=== PATIENT | female | born 1955 | race Caucasian/White ===

== ENCOUNTER 2024-01-14 09:57 | Outpatient (CLI) | payer MEDICARE, OTHER, SELFPAY ==
--- NOTE | ~2024-01-14 | XR_ITS ---
XR hip RT min 2V DATE: 01/14/2024 10:33 INDICATION: Right hip pain TECHNIQUE: AP and lateral views COMPARISON: None FINDINGS: There is severe narrowing and virtual obliteration of right hip joint space and prominent d egenerative spurring of the acetabulum and particularly prominent femoral head spurring, consistent w ith very severe primary osteoarthritis of the right hip. No fracture, dislocation, avascular necrosis or bone destruction is noted. Normal alignment of the pubic symphysis and sacroiliac joints. IMPRESSION: Very severe primary osteoarthritis of right hip Reviewed, dictated and finalized at location B.
== END 2024-01-14 09:58 ==
PROVIDERS: PCP Family Medicine Adolescent Medicine; Visit Provider Family Medicine Adolescent Medicine
DX: M16.11 Unilateral primary osteoarthritis, right hip (principal)
CPT/HCPCS: 73502